=== PATIENT | male | born 1960 | race Hispanic/Latino ===

== ENCOUNTER 2018-09-10 16:03 | Observation (INO) | payer MEDICAID ==
[2018-09-10] MEDS ORDERED: Albuterol-Ipratrop 3 mg / 0.5 (3 ml) UD IH STA ×2 (16:42)
--- NOTE | 2018-09-10 16:45 | ED PDOC ---
HPI: CCC, URI, Sore Throat Time Seen by Provider: 09/10/18 16:35 Chief Complaint (Nursing): Cough, Cold, Congestion History Per: Patient Onset/Duration Of Symptoms: Days (7) Current Symptoms Are (Timing): Still Present Associated Symptoms: Fever, Sore Throat. denies: Sputum Severity: Moderate Additional Complaint(s): Cough productive scant sputum assoc with fever and SOB x 1 week. Denies chest pain. Past Medical History Vital Signs: Last Vital Signs Temp 97.9 F 09/10/18 16:17 Pulse 81 09/10/18 16:17 Resp 24 09/10/18 16:17 BP 147/85 09/10/18 16:17 Pulse Ox 90 L 09/10/18 16:17 - Medical History PMH: No Chronic Diseases - Family History Family History: States: Unknown Family Hx - Allergies Allergies/Adverse Reactions: Allergies Allergy/AdvReac Type Severity Reaction Status Date / Time No Known Allergies Allergy Verified 09/10/18 16:17 Review of Systems ROS Statement: Except As Marked, All Systems Reviewed And Found Negative Constitutional: Positive for: Fever Respiratory: Positive for: Cough, Shortness of Breath Physical Exam - Reviewed Nursing Documentation Reviewed: Yes Vital Signs Reviewed: Yes - Physical Exam Appears: Positive for: Non-toxic, No Acute Distress Head Exam: Positive for: ATRAUMATIC, NORMAL INSPECTION, NORMOCEPHALIC Skin: Positive for: Normal Color, Warm, DRY Eye Exam: Positive for: EOMI, Normal appearance, PERRL ENT: Positive for: Normal ENT Inspection Neck: Positive for: Normal, Painless ROM Cardiovascular/Chest: Positive for: Regular Rate, Rhythm Respiratory: Positive for: Rhonchi, Wheezing. Negative for: Respiratory Distress Gastrointestinal/Abdominal: Positive for: Normal Exam, Soft. Negative for: Tenderness Back: Positive for: Normal Inspection Extremity: Positive for: Normal ROM Neurological/Psych: Positive for: Awake, Alert, Normal Tone - ECG O2 Sat by Pulse Oximetry: 90 Disposition - Clinical Impression Clinical Impression: Cough - Patient ED Disposition Is Patient to be Admitted: Transfer of Care - Disposition Disposition: Transfer of Care Disposition Time: 17:00 Condition: FAIR Forms: [employer] ([employer] Patient Signed Over To: Chance Barber (Pending labs CXR and reeval)
[2018-09-10] MEDS ORDERED: Albuterol-Ipratrop 3 mg / 0.5 (3 ml) UD ONE (16:56)
--- NOTE | 2018-09-10 16:57 | ED PDOC ---
- Laboratory Results Result Diagrams: 09/11/18 05:10 09/11/18 05:10 - ECG O2 Sat by Pulse Oximetry: 90 (RA) Pulse Ox Interpretation: Abnormal Medical Decision Making Medical Decision Makin Patient endorsed to me by Dr. Staley, pending workup. Scribe Attestation: Documented by Peggy Garrett, acting as a scribe for Chance Barber MD. Provider Scribe Attestation: All medical record entries made by the Scribe were at my direction and personally dictated by me. I have reviewed the chart and agree that the record accurately reflects my personal performance of the history, physical exam, medical decision making, and the department course for this patient. I have also personally directed, reviewed, and agree with the discharge instructions and disposition. Time: 1701 CXR RESULTS Date of service: 09/10/2018 HISTORY: cough COMPARISON: No prior. TECHNIQUE: Chest PA and lateral views FINDINGS: LUNGS: No active pulmonary disease. PLEURA: No significant pleural effusion identified. No pneumothorax apparent. CARDIOVASCULAR: No aortic atherosclerotic calcification present. Normal cardiac size. No pulmonary vascular congestion. OSSEOUS STRUCTURES: No significant abnormalities. VISUALIZED UPPER ABDOMEN: Normal. OTHER FINDINGS: None. IMPRESSION: No active disease. Time: 1820 -- Flu and cxr are negative. -- On re-evaluation, patient reports of a slight improvement in symptoms. O2 saturation is still only at 92%. Patient to be admitted to the hospitalist's service. steroids ordered for presumed copd/reactive airway Time: 1825 -- Spoke to Dr. Lee who is aware of patient and accepts patient for admission to his service. __ Scribe Attestation: Documented by Krystyna Stanton, acting as a scribe for Chance Barber MD. Provider Scribe Attestation: All medical record entries made by the Scribe were at my direction and personally dictated by me. I have reviewed the chart and agree that the record accurately reflects my personal performance of the history, physical exam, medical decision making, and the department course for this patient. I have also personally directed, reviewed, and agree with the discharge instructions and disposition. Disposition Counseled Patient/Family Regarding: Studies Performed, Diagnosis - Clinical Impression Clinical Impression: Cough, COPD (chronic obstructive pulmonary disease) - POA Present On Arrival: None - Disposition Disposition: Hospitalized as Observation Patient Disposition Time: 18:00 Condition: FAIR
[2018-09-10 17:28] LABS: BASO # 0.1 K/uL (0.0-0.2); BASO % 0.4 % (0.0-2.0); EOS # 0.1 K/uL (0.0-0.7); EOS % 0.5 % (0.0-4.0); HEMOGLOBIN 11.4 g/dL (12.0-18.0); LYMPH # 1.4 K/uL (1.0-4.3); LYMPH % 9.5 % (20.0-40.0); MEAN CELL VOLUME 80.2 fl (80.0-94.0); MEAN CORPUSCULAR HEMOGLOBIN 27.3 pg (27.0-31.0); MEAN PLATELET VOLUME 8.9 fl (7.2-11.7); MONO % 7.1 % (0.0-10.0); NEUT # 12.1 K/uL (1.8-7.0); NEUT % 82.5 % (50.0-75.0); NRBC % 0.1 % (0.0-0.0); PLATELET COUNT 476 K/uL (130-400); RBC 4.18 Mil/uL (4.40-5.90); RED CELL DISTRIBUTION WIDTH 13.8 % (11.5-14.5); WHITE BLOOD COUNT 14.7 K/uL (4.8-10.8)
--- NOTE | 2018-09-10 17:39 | RAD ---
Date of service: 09/10/2018 HISTORY: cough COMPARISON: No prior. TECHNIQUE: Chest PA and lateral views FINDINGS: LUNGS: No active pulmonary disease. PLEURA: No significant pleural effusion identified. No pneumothorax apparent. CARDIOVASCULAR: No aortic atherosclerotic calcification present. Normal cardiac size. No pulmonary vascular congestion. OSSEOUS STRUCTURES: No significant abnormalities. VISUALIZED UPPER ABDOMEN: Normal. OTHER FINDINGS: None. IMPRESSION: No active disease.
[2018-09-10 17:45] LABS: ABG ALLEN TEST YES; ARTERIAL BLOOD GAS HCO3 26.7 mmol/L (21-28); ARTERIAL BLOOD GAS O2 SAT 95.4 % (95-98); ARTERIAL BLOOD GAS PCO2 37 mm/Hg (35-45); ARTERIAL BLOOD GAS PH 7.46 (7.35-7.45); ARTERIAL BLOOD GAS PO2 55 mm/Hg (80-100); ARTERIAL BLOOD GAS TCO2 27.4 mmol/L (22-28)
[2018-09-10] MEDS ORDERED: Azithromycin 500 MG in Sodium Chloride 0.9% 250 ML IVPB STA (18:20)
[2018-09-10] MEDS ORDERED: Azithromycin 500 MG IV IVPB ONE (18:26)
[2018-09-10 18:43] LABS: ALB/GLOB RATIO 1.1 (1.0-2.1); ALBUMIN 3.7 g/dL (3.5-5.0); ALT/SGPT 30 U/L (21-72); AST/SGOT 29 U/L (17-59); BLOOD UREA NITROGEN 12 mg/dl (9-20); CALCIUM 8.5 mg/dL (8.4-10.2); GFR NON-AFRICAN AMERICAN > 60
[2018-09-10 18:43] LABS: LYMPHOCYTE 8 % (20-50); MONOCYTE 7 % (0-10); NEUTROPHIL 85 % (42-75); PLATELET ESTIMATE NORMAL (NORMAL); TOTAL CELLS COUNTED 100
[2018-09-10] MEDS ORDERED: Potassium Chloride 20 mEq ER Tab PO ONE ×2 (18:48→19:35)
[2018-09-10] MEDS ORDERED: Albuterol-Ipratrop 3 mg / 0.5 (3 ml) UD INH PRN (19:02)
--- NOTE | 2018-09-10 19:14 | CP.PCM.HP ---
<Symone Diop - Last Filed: 09/10/18 19:31> History of Present Illness - History of Present Illness History of Present Illness: 58 yo with no significant PMH presented to the ED c/o cough, fever and sob for 1 week. Endorses cough productive of scant whitish sputum. Afebrile today. Associated sore throat. Patient otherwise denies chills, difficulty breathing, chest pain, N/V/D/C. No abdominal pain or urinary sx. PMD: none provided PMH: states no chronic diseases PSH: denies FMH: unknown Meds: NKDA SH: former smoker 1ppd, quit 10 yrs ago, denies etoh or ilicit drugs. ED course: - VSS, afebrile, O2 sat 90% - CBC showed leukocytosis (14.7), anemia. - Mild hypokalemia - CXR negative for acute lung disease - Duonebs x2, Solumedrol 125mg IV once, Zithromax 500mg Iv once Present on Admission - Present on Admission Any Indicators Present on Admission: No Review of Systems - Review of Systems All systems: reviewed and no additional remarkable complaints except (HPI) Past Patient History - Past Social History Smoking Status: Former Smoker - PULMONARY Hx Asthma: Yes - MUSCULOSKELETAL/RHEUMATOLOGICAL Other/Comment: rt hip pain - PSYCHIATRIC Hx Substance Use: No - SURGICAL HISTORY Hx Orthopedic Surgery: Yes (lt hip) - ANESTHESIA Hx Anesthesia: Yes Hx Anesthesia Reactions: No Meds Allergies/Adverse Reactions: Allergies Allergy/AdvReac Type Severity Reaction Status Date / Time No Known Allergies Allergy Verified 09/10/18 16:17 Physical Exam - Constitutional Appears: No Acute Distress - Head Exam Head Exam: NORMAL INSPECTION - Eye Exam Eye Exam: EOMI, PERRL - ENT Exam ENT Exam: Mucous Membranes Moist - Neck Exam Neck exam: Positive for: Full Rom. Negative for: Lymphadenopathy, Thyromegaly - Respiratory Exam Respiratory Exam: Wheezes (difuse), NORMAL BREATHING PATTERN. absent: Accessory Muscle Use, Rales, Respiratory Distress - Cardiovascular Exam Cardiovascular Exam: REGULAR RHYTHM, +S1, +S2. absent: Tachycardia, Systolic Murmur - GI/Abdominal Exam GI & Abdominal Exam: Normal Bowel Sounds, Soft. absent: Distended, Tenderness - Extremities Exam Extremities exam: Negative for: calf tenderness, pedal edema - Back Exam Back exam: absent: CVA tenderness (L), CVA tenderness (R) - Neurological Exam Neurological exam: Alert, CN II-XII Intact, Oriented x3 - Psychiatric Exam Psychiatric exam: Normal Mood - Skin Skin Exam: Dry, Warm Results - Vital Signs Recent Vital Signs: Last Vital Signs Temp 97.9 F 09/10/18 16:17 Pulse 81 09/10/18 16:17 Resp 24 09/10/18 16:17 BP 147/85 09/10/18 16:17 Pulse Ox 90 L 09/10/18 18:27 - Labs Result Diagrams: 09/10/18 17:14 09/10/18 18:15 Labs: Laboratory Results - last 24 hr 09/10/18 09/10/18 09/10/18 17:14 17:14 17:40 WBC 14.7 H RBC 4.18 L Hgb 11.4 L Hct 33.5 L MCV 80.2 MCH 27.3 MCHC 34.0 RDW 13.8 Plt Count 476 H MPV 8.9 Neut % (Auto) 82.5 H Lymph % (Auto) 9.5 L Ellis % (Auto) 7.1 Eos % (Auto) 0.5 Baso % (Auto) 0.4 Neut # (Auto) 12.1 H Lymph # (Auto) 1.4 Ellis # (Auto) 1.0 H Eos # (Auto) 0.1 Baso # (Auto) 0.1 Neutrophils % (Manual) 85 H Lymphocytes % (Manual) 8 L Monocytes % (Manual) 7 Platelet Estimate Normal RBC Morphology Normal pCO2 37 pO2 55 L HCO3 26.7 ABG pH 7.46 H ABG Total CO2 27.4 ABG O2 Saturation 95.4 ABG Base Excess 2.5 Dann Test Yes ABG Potassium 3.3 L A-a O2 Difference 48.0 Sodium 133.0 Chloride 101.0 Glucose 108 Lactate 0.7 FiO2 21.0 Potassium Carbon Dioxide Anion Gap BUN Creatinine Est GFR ( Amer) Est GFR (Non-Af Amer) Random Glucose Calcium Total Bilirubin AST ALT Alkaline Phosphatase Total Protein Albumin Globulin Albumin/Globulin Ratio Arterial Blood Potassium 3.3 L Influenza Typ A,B (EIA) Negative for flu a/b 09/10/18 18:15 WBC RBC Hgb Hct MCV MCH MCHC RDW Plt Count MPV Neut % (Auto) Lymph % (Auto) Ellis % (Auto) Eos % (Auto) Baso % (Auto) Neut # (Auto) Lymph # (Auto) Ellis # (Auto) Eos # (Auto) Baso # (Auto) Neutrophils % (Manual) Lymphocytes % (Manual) Monocytes % (Manual) Platelet Estimate RBC Morphology pCO2 pO2 HCO3 ABG pH ABG Total CO2 ABG O2 Saturation ABG Base Excess Dann Test ABG Potassium A-a O2 Difference Sodium 136 Chloride 98 Glucose Lactate FiO2 Potassium 3.3 L Carbon Dioxide 26 Anion Gap 15 BUN 12 Creatinine 0.7 L Est GFR ( Amer) > 60 Est GFR (Non-Af Amer) > 60 Random Glucose 104 Calcium 8.5 Total Bilirubin 0.4 AST 29 ALT 30 Alkaline Phosphatase 78 Total Protein 7.1 Albumin 3.7 Globulin 3.3 Albumin/Globulin Ratio 1.1 Arterial Blood Potassium Influenza Typ A,B (EIA) Assessment & Plan - Assessment and Plan (Free Text) Assessment: 58 yo Male patient with hx of COPD admitted for COPD exacerbation management. Plan: COPD exacerbation Leukocytosis - VSS, afebrile - CXR negative for active lung disease - Influenza A&B, RSV neg - O2 sat 91% - O2 via NC to keep O2 sat >92% - Dounebs prn - start Solumedrol 40mg q8 - Start Levaquin daily - f/u labs and cultures in am Hypokalemia - K 3.3, replaced - f/u BMP in am Anemia, normocytic - H/H 11.4/33.5 - no signs of active bleeding - f/u cbc in am PPx - DVT: lovenox - GI: protonix Case seen/discussed with Dr Lee <Nikolai Lee - Last Filed: 09/10/18 23:47> Results - Vital Signs Recent Vital Signs: Last Vital Signs Temp 98.2 F 09/10/18 21:40 Pulse 86 09/10/18 21:40 Resp 20 09/10/18 22:34 BP 131/77 09/10/18 21:40 Pulse Ox 98 09/10/18 22:34 - Labs Result Diagrams: 09/10/18 17:14 09/10/18 18:15 Labs: Laboratory Results - last 24 hr 09/10/18 09/10/18 09/10/18 17:14 17:14 17:40 WBC 14.7 H RBC 4.18 L Hgb 11.4 L Hct 33.5 L MCV 80.2 MCH 27.3 MCHC 34.0 RDW 13.8 Plt Count 476 H MPV 8.9 Neut % (Auto) 82.5 H Lymph % (Auto) 9.5 L Ellis % (Auto) 7.1 Eos % (Auto) 0.5 Baso % (Auto) 0.4 Neut # (Auto) 12.1 H Lymph # (Auto) 1.4 Ellis # (Auto) 1.0 H Eos # (Auto) 0.1 Baso # (Auto) 0.1 Neutrophils % (Manual) 85 H Lymphocytes % (Manual) 8 L Monocytes % (Manual) 7 Platelet Estimate Normal RBC Morphology Normal pCO2 37 pO2 55 L HCO3 26.7 ABG pH 7.46 H ABG Total CO2 27.4 ABG O2 Saturation 95.4 ABG Base Excess 2.5 Dann Test Yes ABG Potassium 3.3 L A-a O2 Difference 48.0 Sodium 133.0 Chloride 101.0 Glucose 108 Lactate 0.7 FiO2 21.0 Potassium Carbon Dioxide Anion Gap BUN Creatinine Est GFR ( Amer) Est GFR (Non-Af Amer) Random Glucose Calcium Total Bilirubin AST ALT Alkaline Phosphatase Total Protein Albumin Globulin Albumin/Globulin Ratio Arterial Blood Potassium 3.3 L Urine Color Urine Clarity Urine pH Ur Specific Belcher Urine Protein Urine Glucose (UA) Urine Ketones Urine Blood Urine Nitrate Urine Bilirubin Urine Urobilinogen Ur Leukocyte Esterase Urine RBC (Auto) Urine Microscopic WBC Influenza Typ A,B (EIA) Negative for flu a/b 09/10/18 09/10/18 18:15 19:30 WBC RBC Hgb Hct MCV MCH MCHC RDW Plt Count MPV Neut % (Auto) Lymph % (Auto) Ellis % (Auto) Eos % (Auto) Baso % (Auto) Neut # (Auto) Lymph # (Auto) Ellis # (Auto) Eos # (Auto) Baso # (Auto) Neutrophils % (Manual) Lymphocytes % (Manual) Monocytes % (Manual) Platelet Estimate RBC Morphology pCO2 pO2 HCO3 ABG pH ABG Total CO2 ABG O2 Saturation ABG Base Excess Dann Test ABG Potassium A-a O2 Difference Sodium 136 Chloride 98 Glucose Lactate FiO2 Potassium 3.3 L Carbon Dioxide 26 Anion Gap 15 BUN 12 Creatinine 0.7 L Est GFR ( Amer) > 60 Est GFR (Non-Af Amer) > 60 Random Glucose 104 Calcium 8.5 Total Bilirubin 0.4 AST 29 ALT 30 Alkaline Phosphatase 78 Total Protein 7.1 Albumin 3.7 Globulin 3.3 Albumin/Globulin Ratio 1.1 Arterial Blood Potassium Urine Color Yellow Urine Clarity Slighty-cloudy Urine pH 6.0 Ur Specific Belcher 1.008 Urine Protein Negative Urine Glucose (UA) Neg Urine Ketones Trace Urine Blood Negative Urine Nitrate Negative Urine Bilirubin Negative Urine Urobilinogen 0.2-1.0 Ur Leukocyte Esterase Neg Urine RBC (Auto) < 1 Urine Microscopic WBC 1 Influenza Typ A,B (EIA) Attending/Attestation - Attestation I have personally seen and examined this patient.: Yes I have fully participated in the care of the patient.: Yes I have reviewed all pertinent clinical information: Yes Notes (Text): 09/10/18 23:46 Patient seen and examined with resident. Case discussed and agreed with assessment and plan of management.
[2018-09-10] MEDS: Sodium Chloride 0.9% 1,000 ML IV SCH (19:45)
[2018-09-10 20:04] LABS: URINE BILIRUBIN NEGATIVE (NEGATIVE); URINE BLOOD NEGATIVE (NEGATIVE); URINE CLARITY SLIGHTY-CLOUDY (Clear); URINE COLOR YELLOW (YELLOW); URINE GLUCOSE (UA) NEG (NEGATIVE); URINE LEUKOCYTE ESTERASE NEG Leu/uL (Negative); URINE PROTEIN NEGATIVE (NEGATIVE); URINE UROBILINOGEN 0.2-1.0 mg/dL (0.2-1.0)
[2018-09-10] MEDS ORDERED: Pneumococcal 23-Valent Vaccine IM ONE (23:02)
[2018-09-11] MEDS: MethylPREDNISolone 40 mg Vial IVP SCH ×3 (00:10→17:42)
[2018-09-11] MEDS ORDERED: methylPREDNISolone 40 MG in Sodium Chloride 0.9% 50 ML IVPB SCH (01:00)
[2018-09-11] MEDS: Sodium Chloride 0.9% 1,000 ML IV SCH ×2 (05:59→17:40)
[2018-09-11 06:00] LABS: BASO % 0.2 % (0.0-2.0); HEMOGLOBIN 10.9 g/dL (12.0-18.0); LYMPH # 0.7 K/uL (1.0-4.3); LYMPH % 7.1 % (20.0-40.0); MEAN CORPUSCULAR HEMOGLOBIN 27.8 pg (27.0-31.0); MEAN CORPUSCULAR HGB CONC 34.3 g/dL (33.0-37.0); MEAN PLATELET VOLUME 8.3 fl (7.2-11.7); MONO # 0.1 K/uL (0.0-0.8); MONO % 1.1 % (0.0-10.0); NEUT # 9.3 K/uL (1.8-7.0); NEUT % 91.6 % (50.0-75.0); RBC 3.93 Mil/uL (4.40-5.90); RED CELL DISTRIBUTION WIDTH 13.6 % (11.5-14.5); WHITE BLOOD COUNT 10.2 K/uL (4.8-10.8)
[2018-09-11 06:11] LABS: BLOOD UREA NITROGEN 15 mg/dl (9-20); CALCIUM 8.5 mg/dL (8.4-10.2); GFR NON-AFRICAN AMERICAN > 60
[2018-09-11] MEDS: Enoxaparin 40 mg Syringe SC SCH (08:21)
[2018-09-11] MEDS: Pantoprazole 40 mg EC Tab PO SCH (08:21)
[2018-09-11] MEDS: levoFLOXacin 500 mg in D5W 500 MG/100 ML BAG IVPB SCH (11:42)
[2018-09-11] MEDS: guaiFENesin 600 mg ER Tab PO SCH ×2 (11:45→21:02)
[2018-09-11] MEDS: Albuterol-Ipratrop 3 mg / 0.5 (3 ml) UD INH SCH ×3 (11:57→19:01)
--- NOTE | 2018-09-11 15:09 | CP.PCM.PN ---
<CassytoniQuynh gaytan - Last Filed: 09/11/18 15:42> Subjective - Date & Time of Evaluation Date of Evaluation: 09/11/18 Time of Evaluation: 15:09 - Subjective Subjective: Pt seen and examined at bedside reports he is feeling better. Denies SOB. Reports a cough with minimal sputum production. Denies fever, chills, chest pain, N/V/D/C. Tolerating oral intake. Objective - Vital Signs/Intake and Output Vital Signs (last 24 hours): Temp Pulse Resp BP Pulse Ox 97.2 F L 73 20 123/73 94 L 09/11/18 11:47 09/11/18 11:47 09/11/18 11:47 09/11/18 11:47 09/11/18 11:47 - Medications Medications: Current Medications Albuterol/Ipratropium (Duoneb 3 Mg/0.5 Mg (3 Ml) Ud) 3 ml INH RQ4 ERIK Last Admin: 09/11/18 11:57 Dose: 3 ml Docusate Sodium (Colace) 100 mg PO BID PRN PRN Reason: Constipation Enoxaparin Sodium (Lovenox) 40 mg SC DAILY EIRK; Protocol Last Admin: 09/11/18 08:21 Dose: 40 mg Guaifenesin (Mucinex La) 600 mg PO Q12 ERIK Last Admin: 09/11/18 11:45 Dose: 600 mg Sodium Chloride (Sodium Chloride 0.9%) 1,000 mls @ 100 mls/hr IV .Q10H ERIK Last Admin: 09/11/18 05:59 Dose: Not Given Levofloxacin/Dextrose (Levaquin 500mg) 500 mg in 100 mls @ 100 mls/hr IVPB DAILY ERIK; Protocol Last Admin: 09/11/18 11:42 Dose: 100 mls/hr Methylprednisolone (Solu-Medrol) 40 mg IVP Q8 ERIK Last Admin: 09/11/18 08:24 Dose: 40 mg Pantoprazole Sodium (Protonix Ec Tab) 40 mg PO DAILY ERIK Last Admin: 09/11/18 08:21 Dose: 40 mg Paroxetine HCl (Paxil) 20 mg PO DAILY ERIK Last Admin: 09/11/18 08:21 Dose: 20 mg - Labs Labs: 09/11/18 05:10 09/11/18 05:10 - Constitutional Appears: Non-toxic, No Acute Distress - Head Exam Head Exam: NORMAL INSPECTION - Eye Exam Eye Exam: EOMI - ENT Exam ENT Exam: Mucous Membranes Moist Additional comments: 3L Nasal cannula - Respiratory Exam Respiratory Exam: Wheezes. absent: Accessory Muscle Use, Rales (B/L ), Rhonchi - Cardiovascular Exam Cardiovascular Exam: RRR, +S1, +S2 - GI/Abdominal Exam GI & Abdominal Exam: Soft, Normal Bowel Sounds. absent: Tenderness - Extremities Exam Extremities Exam: Normal Inspection - Neurological Exam Neurological Exam: Alert, Awake Assessment and Plan - Assessment and Plan (Free Text) Assessment: 58 yo M with hx of COPD admitted for COPD exacerbation management. Plan: COPD exacerbation Leukocytosis resolved - VSS, afebrile, O2 sat 95% on 3L NC, drops to 92% without O2 - CXR negative for active lung disease - Influenza A&B neg - Dounebs Q4h - c/w Solumedrol 40mg q8, Mucinex 600mg Q12 - c/w Levaquin 500mg IV QD (Day 1) - F/u blood and urine culture - f/u CBC, BMP in am Hypokalemia - K 4.1, replaced - f/u BMP in am Anemia, normocytic - H/H 10.9/31.8 - no signs of active bleeding - f/u CBC in am Depression -c/w home med Paxil Diet -Regular GI ppx - protonix DVT ppx - lovenox 40mg SC <Tatianna Campa - Last Filed: 09/11/18 16:28> Objective - Vital Signs/Intake and Output Vital Signs (last 24 hours): Temp Pulse Resp BP Pulse Ox 98.3 F 75 18 136/75 96 09/11/18 16:15 09/11/18 16:15 09/11/18 16:15 09/11/18 16:15 09/11/18 16:15 - Medications Medications: Current Medications Albuterol/Ipratropium (Duoneb 3 Mg/0.5 Mg (3 Ml) Ud) 3 ml INH RQ4 ERIK Last Admin: 09/11/18 15:57 Dose: 3 ml Docusate Sodium (Colace) 100 mg PO BID PRN PRN Reason: Constipation Enoxaparin Sodium (Lovenox) 40 mg SC DAILY [facility]; Protocol Last Admin: 09/11/18 08:21 Dose: 40 mg Guaifenesin (Mucinex La) 600 mg PO Q12 ERIK Last Admin: 09/11/18 11:45 Dose: 600 mg Sodium Chloride (Sodium Chloride 0.9%) 1,000 mls @ 100 mls/hr IV .Q10H ERIK Last Admin: 09/11/18 05:59 Dose: Not Given Levofloxacin/Dextrose (Levaquin 500mg) 500 mg in 100 mls @ 100 mls/hr IVPB DAILY ERIK; Protocol Last Admin: 09/11/18 11:42 Dose: 100 mls/hr Methylprednisolone (Solu-Medrol) 40 mg IVP Q8 ERIK Last Admin: 09/11/18 08:24 Dose: 40 mg Pantoprazole Sodium (Protonix Ec Tab) 40 mg PO DAILY ERIK Last Admin: 09/11/18 08:21 Dose: 40 mg Paroxetine HCl (Paxil) 20 mg PO DAILY ERIK Last Admin: 09/11/18 08:21 Dose: 20 mg - Labs Labs: 09/11/18 05:10 09/11/18 05:10 Attending/Attestation - Attestation I have personally seen and examined this patient.: Yes I have fully participated in the care of the patient.: Yes I have reviewed all pertinent clinical information, including history, physical exam and plan: Yes Notes (Text): COPD exacerbation Acute Bronchitis Depression - cont IV Solumedrol - cont RTC Duoneb - cont IV Levaquin - CXR : neg, Influenza : neg - cont Paxil - Pt still with SOB and wheezing but better, will keep pt under observation in the hospital for 1 more day asnd re-eval in am
[2018-09-12] MEDS: MethylPREDNISolone 40 mg Vial IVP SCH ×2 (00:44→08:41)
[2018-09-12] MEDS: Sodium Chloride 0.9% 1,000 ML IV SCH (01:10)
[2018-09-12 05:42] LABS: BASO % 0.1 % (0.0-2.0); HEMOGLOBIN 10.1 g/dL (12.0-18.0); LYMPH # 0.8 K/uL (1.0-4.3); LYMPH % 5.9 % (20.0-40.0); MEAN CELL VOLUME 82.2 fl (80.0-94.0); MEAN CORPUSCULAR HEMOGLOBIN 26.8 pg (27.0-31.0); MEAN CORPUSCULAR HGB CONC 32.7 g/dL (33.0-37.0); MEAN PLATELET VOLUME 8.4 fl (7.2-11.7); MONO # 0.4 K/uL (0.0-0.8); MONO % 2.6 % (0.0-10.0); NEUT # 12.8 K/uL (1.8-7.0); NEUT % 91.4 % (50.0-75.0); RBC 3.78 Mil/uL (4.40-5.90); RED CELL DISTRIBUTION WIDTH 13.7 % (11.5-14.5)
[2018-09-12 05:53] LABS: BLOOD UREA NITROGEN 18 mg/dl (9-20); CALCIUM 8.4 mg/dL (8.4-10.2); GFR NON-AFRICAN AMERICAN > 60
[2018-09-12] MEDS: Albuterol-Ipratrop 3 mg / 0.5 (3 ml) UD INH SCH ×2 (07:31→11:27)
[2018-09-12 07:49] VITALS: RESP 20; O2SAT 94
[2018-09-12] MEDS: levoFLOXacin 500 mg in D5W 500 MG/100 ML BAG IVPB SCH (08:39)
[2018-09-12] MEDS: Pantoprazole 40 mg EC Tab PO SCH (08:40)
[2018-09-12] MEDS: guaiFENesin 600 mg ER Tab PO SCH (08:40)
[2018-09-12] MEDS: Enoxaparin 40 mg Syringe SC SCH (08:40)
[2018-09-12] MEDS ORDERED: FLUTICASONE PROPION/SALMETEROL 113-14 IH SCH (09:15)
[2018-09-12] MEDS ORDERED: Fluticasone-Salmeterol 250-50mcg Diskus IH SCH (09:30)
[2018-09-12] MEDS ORDERED: Albuterol HFA 90 mcg/actuation (8 g) INH PRN (10:24)
--- NOTE | 2018-09-12 10:40 | CP.PCM.DIS ---
<Quynh Bennett - Last Filed: 09/12/18 11:14> Provider - Provider Date of Admission: 09/10/18 18:21 Attending physician: Nikolai Lee MD Primary care physician: Giuseppe burnett Time Spent in preparation of Discharge (in minutes): 10 Diagnosis - Discharge Diagnosis (1) COPD (chronic obstructive pulmonary disease) Status: Acute Comment: resolved. F/u w. PMD in 1 week. started albuterol and advair. Levaquin, mucinex, tessalon and medrol dose pack (2) Cough Status: Acute Comment: [facility] [place] - Lab Results Lab Results: Micro Results 09/10/18 17:29 Blood Blood Culture - Preliminary NO GROWTH AFTER 24 HOURS Most Recent Lab Values WBC 14.0 K/uL (4.8-10.8) H 09/12/18 04:20 RBC 3.78 Mil/uL (4.40-5.90) L 09/12/18 04:20 Hgb 10.1 g/dL (12.0-18.0) L 09/12/18 04:20 Hct 31.0 % (35.0-51.0) L 09/12/18 04:20 MCV 82.2 fl (80.0-94.0) 09/12/18 04:20 MCH 26.8 pg (27.0-31.0) L 09/12/18 04:20 MCHC 32.7 g/dL (33.0-37.0) L 09/12/18 04:20 RDW 13.7 % (11.5-14.5) 09/12/18 04:20 Plt Count 403 K/uL (130-400) H 09/12/18 04:20 MPV 8.4 fl (7.2-11.7) 09/12/18 04:20 Neut % (Auto) 91.4 % (50.0-75.0) H 09/12/18 04:20 Lymph % (Auto) 5.9 % (20.0-40.0) L 09/12/18 04:20 [place] % (Auto) 2.6 % (0.0-10.0) 09/12/18 04:20 Eos % (Auto) 0.0 % (0.0-4.0) 09/12/18 04:20 Baso % (Auto) 0.1 % (0.0-2.0) 09/12/18 04:20 Neut # (Auto) 12.8 K/uL (1.8-7.0) H 09/12/18 04:20 Lymph # (Auto) 0.8 K/uL (1.0-4.3) L 09/12/18 04:20 [place] # (Auto) 0.4 K/uL (0.0-0.8) 09/12/18 04:20 Eos # (Auto) 0.0 K/uL (0.0-0.7) 09/12/18 04:20 Baso # (Auto) 0.0 K/uL (0.0-0.2) 09/12/18 04:20 Total Counted Cancelled 09/11/18 05:10 Neutrophils % (Manual) 85 % (42-75) H 09/10/18 17:14 Band Neutrophils % Cancelled 09/11/18 05:10 Lymphocytes % (Manual) 8 % (20-50) L 09/10/18 17:14 Reactive Lymphs % Cancelled 09/11/18 05:10 Monocytes % (Manual) 7 % (0-10) 09/10/18 17:14 Eosinophils % (Manual) Cancelled 09/11/18 05:10 Basophils % (Manual) Cancelled 09/11/18 05:10 Metamyelocytes % Cancelled 09/11/18 05:10 Myelocytes % Cancelled 09/11/18 05:10 Promyelocytes % Cancelled 09/11/18 05:10 Blast Cells % Cancelled 09/11/18 05:10 Plasma Cell % (Manual) Cancelled 09/11/18 05:10 Nucleated RBC % Cancelled 09/11/18 05:10 Hypersegmented Polys Cancelled 09/11/18 05:10 Smudge Cells Cancelled 09/11/18 05:10 Toxic Granulation Cancelled 09/11/18 05:10 Dohle Bodies Cancelled 09/11/18 05:10 Gaudencio Rods Cancelled 09/11/18 05:10 Platelet Estimate Normal (NORMAL) 09/10/18 17:14 Plt Clumps, EDTA Cancelled 09/11/18 05:10 Large Platelets Cancelled 09/11/18 05:10 Giant Platelets Cancelled 09/11/18 05:10 RBC Morphology Normal (NORMAL) 09/10/18 17:14 Polychromasia Cancelled 09/11/18 05:10 Hypochromasia (manual) Cancelled 09/11/18 05:10 Poikilocytosis (manual Cancelled 09/11/18 05:10 Basophilic Stippling Cancelled 09/11/18 05:10 Anisocytosis (manual) Cancelled 09/11/18 05:10 Microcytosis (manual) Cancelled 09/11/18 05:10 Macrocytosis (manual) Cancelled 09/11/18 05:10 Spherocytes Cancelled 09/11/18 05:10 Sickle Cells Cancelled 09/11/18 05:10 Target Cells Cancelled 09/11/18 05:10 Tear Drop Cells Cancelled 09/11/18 05:10 Ovalocytes Cancelled 09/11/18 05:10 Stomatocytes Cancelled 09/11/18 05:10 Helmet Cells Cancelled 09/11/18 05:10 [place] Bodies Cancelled 09/11/18 05:10 [place] Cells Cancelled 09/11/18 05:10 Acanthocytes (Spur) Cancelled 09/11/18 05:10 Rouleaux Cancelled 09/11/18 05:10 Schistocytes Cancelled 09/11/18 05:10 pCO2 37 mm/Hg (35-45) 09/10/18 17:40 pO2 55 mm/Hg (80-100) L 09/10/18 17:40 HCO3 26.7 mmol/L (21-28) 09/10/18 17:40 ABG pH 7.46 (7.35-7.45) H 09/10/18 17:40 ABG Total CO2 27.4 mmol/L (22-28) 09/10/18 17:40 ABG O2 Saturation 95.4 % (95-98) 09/10/18 17:40 ABG Base Excess 2.5 mmol/L (-2.0-3.0) 09/10/18 17:40 Dann Test Yes 09/10/18 17:40 ABG Potassium 3.3 mmol/L (3.6-5.2) L 09/10/18 17:40 A-a O2 Difference 48.0 mm/Hg 09/10/18 17:40 Sodium 133.0 mmol/L (132-148) 09/10/18 17:40 Chloride 101.0 mmol/L (98-107) 09/10/18 17:40 Glucose 108 mg/dL (75-110) 09/10/18 17:40 Lactate 0.7 mmol/L (0.7-2.1) 09/10/18 17:40 FiO2 21.0 % 09/10/18 17:40 Sodium 138 mmol/l (132-148) 09/12/18 04:20 Potassium 3.9 MMOL/L (3.6-5.0) 09/12/18 04:20 Chloride 104 mmol/L (98-107) 09/12/18 04:20 Carbon Dioxide 25 mmol/L (22-30) 09/12/18 04:20 Anion Gap 13 (10-20) 09/12/18 04:20 BUN 18 mg/dl (9-20) 09/12/18 04:20 Creatinine 0.8 mg/dl (0.8-1.5) 09/12/18 04:20 Est GFR ( Amer) > 60 09/12/18 04:20 Est GFR (Non-Af Amer) > 60 09/12/18 04:20 Random Glucose 148 mg/dL (75-110) H 09/12/18 04:20 Calcium 8.4 mg/dL (8.4-10.2) 09/12/18 04:20 Total Bilirubin 0.4 mg/dl (0.2-1.3) 09/10/18 18:15 AST 29 U/L (17-59) 09/10/18 18:15 ALT 30 U/L (21-72) 09/10/18 18:15 Alkaline Phosphatase 78 U/L (38-126) 09/10/18 18:15 Total Protein 7.1 G/DL (6.3-8.2) 09/10/18 18:15 Albumin 3.7 g/dL (3.5-5.0) 09/10/18 18:15 Globulin 3.3 gm/dL (2.2-3.9) 09/10/18 18:15 Albumin/Globulin Ratio 1.1 (1.0-2.1) 09/10/18 18:15 Arterial Blood Potassium 3.3 mmol/L (3.6-5.2) L 09/10/18 17:40 Urine Color Yellow (YELLOW) 09/10/18 19:30 Urine Clarity Slighty-cloudy (Clear) 09/10/18 19:30 Urine pH 6.0 (5.0-8.0) 09/10/18 19:30 Ur Specific [place] 1.008 (1.003-1.030) 09/10/18 19:30 Urine Protein Negative mg/dL (NEGATIVE) 09/10/18: Urine Glucose (UA) Neg mg/dL (NEGATIVE) 09/10/18: Urine Ketones Trace mg/dL (NEGATIVE) 09/10/18 19: Urine Blood Negative (NEGATIVE) 09/10/18: Urine Nitrate Negative (NEGATIVE) 09/10/18: Urine Bilirubin Negative (NEGATIVE) 09/10/18: Urine Urobilinogen 0.2-1.0 mg/dL (0.2-1.0) 09/10/18 19: Ur Leukocyte Esterase Neg Mg/uL (Negative) 09/10/18: Urine RBC (Auto) < 1 /hpf (0-3) 09/10/18: Urine Microscopic WBC 1 /hpf (0-5) 09/10/18 19:30 Influenza Typ A,B (EIA) Negative for flu a/b (NEGATIVE) 09/10/18 17:14 - Hospital Course Hospital Course: 58 yo with no significant PMH presented to the ED on 09/10/18 with cough with white sputum, fever and sob for 1 week admitted due to COPD exacerbation. In the ED O2 sat 90%, CBC showed leukocytosis (14.7), CXR negative for acute lung disease, Duonebs x2, Solumedrol 125mg IV once, Zithromax 500mg Iv once, influenza negative, blood culture no growth @ 24hrs. Today pt doing well he is saturating at 95% without oxygen, ambulating well, tolerating oral intake, hemodynamically stable for discharge with advair, albuterol, levaquin and medrol dose pack with outpt f/u with PMD in 1 week. Discharge Exam - Head Exam Head Exam: NORMAL INSPECTION - Eye Exam Eye Exam: Normal appearance - ENT Exam ENT Exam: Mucous Membranes Moist - Respiratory Exam Respiratory Exam: Clear to PA & Lateral. absent: Rales, Rhonchi, Wheezes - Cardiovascular Exam Cardiovascular Exam: RRR, +S1, +S2 - GI/Abdominal Exam GI & Abdominal Exam: Normal Bowel Sounds, Soft. absent: Tenderness - Extremities Exam Extremities exam: normal inspection - Neurological Exam Neurological exam: Alert, Oriented x3 Discharge Plan - Discharge Medications Prescriptions: Albuterol HFA [Ventolin HFA 90 mcg/actuation (8 g)] 2 puff INH RQ4 PRN 30 Days #1 inhaler PRN Reason: Shortness Of Breath Benzonatate [Tessalon Perles] 100 mg PO TID 7 Days #21 sgl Fluticasone/Salmeterol 250/50 [Advair Diskus 250/50] 1 puff IH Q12 30 Days #1 puff Levofloxacin [Levaquin] 500 mg PO DAILY #7 tablet Methylprednisolone [Medrol Dose Pack (21 tabs)] 40 mg PO ASDIR #21 mg - Follow Up Plan Condition: FAIR Disposition: HOME/ ROUTINE Instructions: Exacerbation of COPD (DC) Additional Instructions: follow up with primary doctor in 1 week Referrals: [facility] [place] [Outside] <Tatianna Campa - Last Filed: 09/12/18 12:15> Provider - Provider Date of Admission: 09/10/18 18:21 Attending physician: Nikolai Lee MD Hospital Course - Lab Results Lab Results: Micro Results 09/10/18 17:29 Blood Blood Culture - Preliminary NO GROWTH AFTER 24 HOURS Most Recent Lab Values WBC 14.0 K/uL (4.8-10.8) H 09/12/18 04:20 RBC 3.78 Mil/uL (4.40-5.90) L 09/12/18 04:20 Hgb 10.1 g/dL (12.0-18.0) L 09/12/18 04:20 Hct 31.0 % (35.0-51.0) L 09/12/18 04:20 MCV 82.2 fl (80.0-94.0) 09/12/18 04:20 MCH 26.8 pg (27.0-31.0) L 09/12/18 04:20 MCHC 32.7 g/dL (33.0-37.0) L 09/12/18 04:20 RDW 13.7 % (11.5-14.5) 09/12/18 04:20 Plt Count 403 K/uL (130-400) H 09/12/18 04:20 MPV 8.4 fl (7.2-11.7) 09/12/18 04:20 Neut % (Auto) 91.4 % (50.0-75.0) H 09/12/18 04:20 Lymph % (Auto) 5.9 % (20.0-40.0) L 09/12/18 04:20 [place] % (Auto) 2.6 % (0.0-10.0) 09/12/18 04:20 Eos % (Auto) 0.0 % (0.0-4.0) 09/12/18 04:20 Baso % (Auto) 0.1 % (0.0-2.0) 09/12/18 04:20 Neut # (Auto) 12.8 K/uL (1.8-7.0) H 09/12/18 04:20 Lymph # (Auto) 0.8 K/uL (1.0-4.3) L 09/12/18 04:20 [place] # (Auto) 0.4 K/uL (0.0-0.8) 09/12/18 04:20 Eos # (Auto) 0.0 K/uL (0.0-0.7) 09/12/18 04:20 Baso # (Auto) 0.0 K/uL (0.0-0.2) 09/12/18 04:20 Total Counted Cancelled 09/11/18 05:10 Neutrophils % (Manual) 85 % (42-75) H 09/10/18 17:14 Band Neutrophils % Cancelled 09/11/18 05:10 Lymphocytes % (Manual) 8 % (20-50) L 09/10/18 17:14 Reactive Lymphs % Cancelled 09/11/18 05:10 Monocytes % (Manual) 7 % (0-10) 09/10/18 17:14 Eosinophils % (Manual) Cancelled 09/11/18 05:10 Basophils % (Manual) Cancelled 09/11/18 05:10 Metamyelocytes % Cancelled 09/11/18 05:10 Myelocytes % Cancelled 09/11/18 05:10 Promyelocytes % Cancelled 09/11/18 05:10 Blast Cells % Cancelled 09/11/18 05:10 Plasma Cell % (Manual) Cancelled 09/11/18 05:10 Nucleated RBC % Cancelled 09/11/18 05:10 Hypersegmented Polys Cancelled 09/11/18 05:10 Smudge Cells Cancelled 09/11/18 05:10 Toxic Granulation Cancelled 09/11/18 05:10 Dohle Bodies Cancelled 09/11/18 05:10 Gaudencio Rods Cancelled 09/11/18 05:10 Platelet Estimate Normal (NORMAL) 09/10/18 17:14 Plt Clumps, EDTA Cancelled 09/11/18 05:10 Large Platelets Cancelled 09/11/18 05:10 Giant Platelets Cancelled 09/11/18 05:10 RBC Morphology Normal (NORMAL) 09/10/18 17:14 Polychromasia Cancelled 09/11/18 05:10 Hypochromasia (manual) Cancelled 09/11/18 05:10 Poikilocytosis (manual Cancelled 09/11/18 05:10 Basophilic Stippling Cancelled 09/11/18 05:10 Anisocytosis (manual) Cancelled 09/11/18 05:10 Microcytosis (manual) Cancelled 09/11/18 05:10 Macrocytosis (manual) Cancelled 09/11/18 05:10 Spherocytes Cancelled 09/11/18 05:10 Sickle Cells Cancelled 09/11/18 05:10 Target Cells Cancelled 09/11/18 05:10 Tear Drop Cells Cancelled 09/11/18 05:10 Ovalocytes Cancelled 09/11/18 05:10 Stomatocytes Cancelled 09/11/18 05:10 Helmet Cells Cancelled 09/11/18 05:10 [place] Bodies Cancelled 09/11/18 05:10 [place] Cells Cancelled 09/11/18 05:10 Acanthocytes (Spur) Cancelled 09/11/18 05:10 Rouleaux Cancelled 09/11/18 05:10 Schistocytes Cancelled 09/11/18 05:10 pCO2 37 mm/Hg (35-45) 09/10/18 17:40 pO2 55 mm/Hg (80-100) L 09/10/18 17:40 HCO3 26.7 mmol/L (21-28) 09/10/18 17:40 ABG pH 7.46 (7.35-7.45) H 09/10/18 17:40 ABG Total CO2 27.4 mmol/L (22-28) 09/10/18 17:40 ABG O2 Saturation 95.4 % (95-98) 09/10/18 17:40 ABG Base Excess 2.5 mmol/L (-2.0-3.0) 09/10/18 17:40 Dann Test Yes 09/10/18 17:40 ABG Potassium 3.3 mmol/L (3.6-5.2) L 09/10/18 17:40 A-a O2 Difference 48.0 mm/Hg 09/10/18 17:40 Sodium 133.0 mmol/L (132-148) 09/10/18 17:40 Chloride 101.0 mmol/L (98-107) 09/10/18 17:40 Glucose 108 mg/dL (75-110) 09/10/18 17:40 Lactate 0.7 mmol/L (0.7-2.1) 09/10/18 17:40 FiO2 21.0 % 09/10/18 17:40 Sodium 138 mmol/l (132-148) 09/12/18 04:20 Potassium 3.9 MMOL/L (3.6-5.0) 09/12/18 04:20 Chloride 104 mmol/L (98-107) 09/12/18 04:20 Carbon Dioxide 25 mmol/L (22-30) 09/12/18 04:20 Anion Gap 13 (10-20) 09/12/18 04:20 BUN 18 mg/dl (9-20) 09/12/18 04:20 Creatinine 0.8 mg/dl (0.8-1.5) 09/12/18 04:20 Est GFR ( Amer) > 60 09/12/18 04:20 Est GFR (Non-Af Amer) > 60 09/12/18 04:20 Random Glucose 148 mg/dL (75-110) H 09/12/18 04:20 Calcium 8.4 mg/dL (8.4-10.2) 09/12/18 04:20 Total Bilirubin 0.4 mg/dl (0.2-1.3) 09/10/18 18:15 AST 29 U/L (17-59) 09/10/18 18:15 ALT 30 U/L (21-72) 09/10/18 18:15 Alkaline Phosphatase 78 U/L (38-126) 09/10/18 18:15 Total Protein 7.1 G/DL (6.3-8.2) 09/10/18 18:15 Albumin 3.7 g/dL (3.5-5.0) 09/10/18 18:15 Globulin 3.3 gm/dL (2.2-3.9) 09/10/18 18:15 Albumin/Globulin Ratio 1.1 (1.0-2.1) 09/10/18 18:15 Arterial Blood Potassium 3.3 mmol/L (3.6-5.2) L 09/10/18 17:40 Urine Color Yellow (YELLOW) 09/10/18 19:30 Urine Clarity Slighty-cloudy (Clear) 09/10/18 19:30 Urine pH 6.0 (5.0-8.0) 09/10/18 19:30 Ur Specific [place] 1.008 (1.003-1.030) 09/10/18 19:30 Urine Protein Negative mg/dL (NEGATIVE) 09/10/18 19:30 Urine Glucose (UA) Neg mg/dL (NEGATIVE) 09/10/18 19:30 Urine Ketones Trace mg/dL (NEGATIVE) 09/10/18 19:30 Urine Blood Negative (NEGATIVE) 09/10/18 19:30 Urine Nitrate Negative (NEGATIVE) 09/10/18 19:30 Urine Bilirubin Negative (NEGATIVE) 09/10/18 19:30 Urine Urobilinogen 0.2-1.0 mg/dL (0.2-1.0) 09/10/18 19:30 Ur Leukocyte Esterase Neg Mg/uL (Negative) 09/10/18 19:30 Urine RBC (Auto) < 1 /hpf (0-3) 09/10/18 19:30 Urine Microscopic WBC 1 /hpf (0-5) 09/10/18 19:30 Influenza Typ A,B (EIA) Negative for flu a/b (NEGATIVE) 09/10/18 17:14 Attending/Attestation - Attestation I have personally seen and examined this patient.: Yes I have fully participated in the care of the patient.: Yes I have reviewed all pertinent clinical information, including history, physical exam and plan: Yes Notes (Text): COPD exacerbation Acute Bronchitis Depression - Pt doing better, SOB resolved, wheezing resolved, still with cough - received IV Solumedrol , will d/c home on PO Medrol dose curtis - start Advair 250/50 bid - Change Duoneb to Albuterol inhaler prn - Received IV Levaquin, will d/c pt on PO Levaquin - CXR : neg, Influenza : neg - cont Paxil
[2018-09-12 11:52] VITALS: BP 145/78; PULSE 76; TEMP 98.1
== END 2018-09-12 13:15 | disposition home or self-care (01) ==
LOC: H.ER 16:03 → H.ERHOLD 18:21 → H.TEL 21:34
DX: J44.0 Chronic obstructive pulmonary disease with (acute) lower respiratory infection (principal); J20.9 Acute bronchitis, unspecified; J44.1 Chronic obstructive pulmonary disease with (acute) exacerbation; F32.9 Major depressive disorder, single episode, unspecified; M25.551 Pain in right hip; Z23 Encounter for immunization; Z87.891 Personal history of nicotine dependence
CPT/HCPCS: 36415; 71046; 80048; 80053; 81003; 82803; 85025; 87040; 87086; 87804; 90732; 94640; 96372; 96374; 96375; 96376; 99285; G0009; G0378; J0456; J1650; J2920; J2930; J7030; J7050